=== PATIENT | male | born 1970 | race Caucasian/White ===

== ENCOUNTER → 2017-01-10 19:23 | Outpatient (CLI) | payer BC | END | disposition home or self-care (01) | LOC: D.SLEEP 19:23 | DX: G47.33 Obstructive sleep apnea (adult) (pediatric) (principal) ==

== ENCOUNTER 2017-05-24 05:30 | Day surgery (SDC) | payer BC ==
[~2017-05-24] VITALS: Ht 185.4 cm; Wt 97.1 kg
[~2017-05-24 05:30] MED LIST: AMINO ACIDS PO; CAYENNE PEPPER PO; CHANTIX 1 MG TAB1 MG PO; CHROMIUM PICO200 MC1 PO; CINNAMON500 MG PO; GLUCOPHAGE500 MG PO; OMEGA 3 FISH OI1 CAP PO; VITAMIN B-121000 MCG PO; [UNRECOGNIZED DRUG - OTHER] PO
[2017-05-24 08:42] VITALS: BP 122/80; Ht 185.4 cm; Wt 97.1 kg
== END 2017-05-24 14:45 | disposition home or self-care (01) ==
LOC: D.OPS 05:30 → D.PAN 09:30 → D.OPS 11:15 → D.PAN 11:15 → D.OPS 14:45
DX: Z30.2 Encounter for sterilization (principal); F17.200 Nicotine dependence, unspecified, uncomplicated; E11.9 Type 2 diabetes mellitus without complications; G47.30 Sleep apnea, unspecified; Z01.812 Encounter for preprocedural laboratory examination

== ENCOUNTER → 2017-06-26 06:19 | Outpatient (CLI) | payer BC ==
[2017-05-24 08:42] VITALS: BMI 28.2
== END | disposition home or self-care (01) ==
LOC: D.LAB 06:19
DX: N46.9 Male infertility, unspecified (principal)

== ENCOUNTER 2018-03-25 09:10 | Day surgery (SDC) | payer BC ==
[~2018-03-25] VITALS: Ht 185.4 cm; Wt 100.7 kg
--- NOTE | ~2018-03-25 | HP ---
PATIENT: HALLE WEEKS MEDICAL RECORD: [id number] ACCOUNT: [id number] LOCATION:[facility] : 72 ADMISSION DATE: 03/25/18 HISTORY AND PHYSICAL EXAMINATION PREOPERATIVE HISTORY AND PHYSICAL HISTORY OF PRESENT ILLNESS: Halle is 47 who is having chronic problems with nasal obstruction and sleep apnea. He is admitted for septoplasty and bilateral inferior turbinate reduction. PAST MEDICAL HISTORY: Includes diabetes, hypertension and sleep apnea. PAST SURGICAL HISTORY: Includes uvulopharyngopalatoplasty and tonsillectomy. MEDICATIONS: Current medications include metformin, Wellbutrin, testosterone, lisinopril, Trulicity. ALLERGIES: No known drug allergies. PHYSICAL EXAMINATION: GENERAL: Healthy appearing, developmentally normal. FACE: Normal, symmetric, no lesions. EYES: Sclerae and conjunctivae are normal. EARS: Canals and TMs are normal. NOSE: Right septal deviation, large inferior turbinates, no masses or polyps. ORAL CAVITY AND OROPHARYNX: Status post tonsillectomy and UP3. NECK: No masses, no adenopathy. CHEST: Clear. CARDIOVASCULAR: Regular rate and rhythm, no murmur. EXTREMITIES: Normal. IMPRESSION: Sleep apnea, nasal obstruction, refractory to medical management. PLAN: Septoplasty and bilateral inferior turbinate reduction. TRANSINT:[id number] Voice Confirmation ID: [id number] DOCUMENT ID: [id number] BALTA MCCULLOUGH MD at 1711 CC: [id number] DICTATION DATE: 03/22/18 1304 DIRECTOR OF CLINICAL SERVICES: 03/22/18 1351 [facility] 03/25/18 [place] [id number] [place] [id number]
--- NOTE | ~2018-03-25 | OP ---
PATIENT NAME: HALLE WEEKS MEDICAL RECORD: [id number] :72 LOCATION:[facility] ADMISSION DATE: SURGEON: BALTA SANON MD DATE OF OPERATION: 03/25/2018 PREOPERATIVE DIAGNOSES: Nasal obstruction, septal deviation, and turbinate hypertrophy. POSTOPERATIVE DIAGNOSES: Nasal obstruction, septal deviation, and turbinate hypertrophy. PROCEDURES: Septoplasty and bilateral inferior turbinate reduction. SURGEON: Balta Sanon MD ANESTHESIA: General orotracheal. BLOOD LOSS: 2 cc. SPECIMENS: Portion of the turbinates. COMPLICATIONS: None. DISPOSITION: Recovery, stable. PACKING: Dean splints bilaterally. PROCEDURE NOTE: He was brought to the operating room, placed in the supine position, sedated and intubated by anesthesia. Eyes were taped. Head drape was applied. He was positioned, prepped, and draped for nasal surgery. He had been decongested with Afrin preoperatively. Using headlight and nasal speculum, both sides of the nose were injected including the septum, floor of the nose, and inferior turbinates with a total of less than 2 cc of 1% lidocaine with 1:100,000 epinephrine. Two Afrin pledgets were replaced on each side of the nose. After waiting for decongestion, all the Afrin pledgets were removed. A left-sided Jun incision was made and ipsilateral mucoperichondrial flap was elevated. He had previous surgery, so septum really was not attached to the maxillary spine. Some relaxing incisions were made to allow the cartilaginous septum to fall back to the midline. A bony spur was removed from left maxillary spine posteriorly. A small bony spur was removed and the bony septum was fractured to allow the septum to fall back to the midline. Some redundant mucosa was flattened out over the spur, which created midline flat septum. Both inferior turbinates were medialized. The inferior portion was taken down just a little bit with Gruenwald forceps. Suction cautery was used to stop any bleeding and both outfractured with a Ferguson elevator. Nasopharynx was suctioned. [place] incision was closed with interrupted 4-0 chromic. Dean splints were placed bilaterally and sutured to the anterior membranous septum with 2-0 Prolene on a Feroz needle. He was awakened, extubated, and transported to recovery in good condition. No complications. TRANSINT:[id number] Voice Confirmation ID: [id number] DOCUMENT ID: [id number] OPERATIVE REPORT [id number] HALLE WEEKS ERIC MD at 1711 CC: [id number] DICTATION DATE: 03/25/18 142 DOUBLE NEEDLE OPERATOR LOCKSTITCH: 03/25/18 1442 [facility] 03/25/18 [place] [id number] [place] [id number]
[2018-03-25 05:45] LABS: HEMATOCRIT 40.2 % (42.0-54.0); HEMOGLOBIN 13.7 g/dL (13.5-17.5); MCH 31.4 pg (26.0-34.0); MCHC 34.1 g/dL (31.0-37.0); MEAN PLATELET VOLUME 9.9 fL (7.4-10.4); RBC 4.37 10x6/uL (4.20-6.10); RDW 12.4 % (11.5-14.5); WBC 7.6 10x3/uL (4.8-10.8)
[2018-03-25 05:54] LABS: CALC OSMOLALITY 280 mosm/kg (275-300); CALCIUM 8.9 mg/dL (8.5-10.1); CARBON DIOXIDE 27.6 mmol/L (21.0-32.0); CHLORIDE - SERUM 107 mmol/L (98-107); CREATININE - SERUM 0.9 mg/dL (0.6-1.3); GLUCOSE 133 mg/dL (74-106); POTASSIUM - SERUM 3.6 mmol/L (3.5-5.1); SODIUM 140 mmol/L (136-145); UREA NITROGEN 12 mg/dL (7-18); eGFR NON AFRICAN AMERICAN > 90 mL/min (90-120)
[~2018-03-25 09:10] MED LIST changes: +LISINOPRIL10 MG PO; +WELLBUTRIN SR150 MG PO
[2018-03-25] MEDS ORDERED: TRULICITY0.75 MG/0. SC (09:42)
[2018-03-25 09:50] VITALS: Ht 185.4 cm; Wt 100.7 kg
== END 2018-03-25 16:30 | disposition home or self-care (01) ==
LOC: D.OPS 09:10
PROVIDERS: Anesthesiology
DX: J34.2 Deviated nasal septum (principal); J34.89 Other specified disorders of nose and nasal sinuses; J34.3 Hypertrophy of nasal turbinates

== ENCOUNTER → 2018-05-17 09:36 | Outpatient (CLI) | payer BC ==
[2018-03-25 09:50] VITALS: BMI 29.3
[~2018-05-17 09:36] MED LIST changes: +TRULICITY0.75 MG/0. SC
== END | disposition home or self-care (01) ==
LOC: D.MRI 09:36
DX: M54.2 Cervicalgia (principal)

== ENCOUNTER → 2019-01-15 09:11 | Outpatient (CLI) | payer BC ==
[2018-03-25 09:50] VITALS: BMI 29.3
== END | disposition home or self-care (01) ==
LOC: D.NM 09:11
PROVIDERS: ATTEND Family Medicine
DX: R94.6 Abnormal results of thyroid function studies (principal)

== ENCOUNTER 2019-02-16 03:19 | Emergency (ER) | payer BC ==
[~2019-02-16] VITALS: Ht 185.4 cm; Wt 104.5 kg
[2019-02-16 03:24] VITALS: Ht 185.4 cm; Wt 104.5 kg
[2019-02-16] MEDS ORDERED: NORVASC5 MG (03:26)
[2019-02-16] MEDS ORDERED: LEVEMIR IN100 UNITS/ (03:26)
[2019-02-16] MEDS ORDERED: ZYPREXA2.5 MG (03:26)
[2019-02-16 03:58] LABS: BASOPHILS 0.1 % (0-2); EOSINOPHILS 0.1 % (0-7); HEMATOCRIT 41.5 % (42.0-54.0); HEMOGLOBIN 14.6 g/dL (13.5-17.5); IMMATURE GRANULOCYTES 0.3 % (0-5); LYMPHOCYTES 7.1 % (15-50); MCH 31.4 pg (26.0-34.0); MCHC 35.2 g/dL (31.0-37.0); MCV 89.2 fL (80.0-100.0); MONOCYTES 3.6 % (2-11); NEUTROPHILS 88.8 % (40-80); PLATELET COUNT 183 10x3/uL (130-400); RBC 4.65 10x6/uL (4.20-6.10); RDW 12.4 % (11.5-14.5); WBC 14.7 10x3/uL (4.8-10.8)
[2019-02-16 04:09] LABS: APPEARANCE CLEAR (CLEAR); COLOR YELLOW (YELLOW); GLUCOSE 1000 mg/dL (NEGATIVE); NITRITE NEGATIVE (NEGATIVE); PROTEIN NEGATIVE (NEGATIVE); SPECIFIC GRAVITY 1.015 (1.005-1.020)
[2019-02-16 04:10] LABS: ALBUMIN 3.8 g/dL (3.4-5.0); ALKALINE PHOSPHATASE 72 U/L (46-116); ALT (SGPT) 52 U/L (10-68); AMYLASE - SERUM 20 U/L (25-115); BILIRUBIN - TOTAL 0.53 mg/dL (0.2-1.3); CALCIUM 9.1 mg/dL (8.5-10.1); CARBON DIOXIDE 24.2 mmol/L (21.0-32.0); CHLORIDE - SERUM 101 mmol/L (98-107); CREATININE - SERUM 0.9 mg/dL (0.6-1.3); LIPASE 129 U/L (73-393); POTASSIUM - SERUM 4.4 mmol/L (3.5-5.1); PROTEIN - SERUM 7.4 g/dL (6.4-8.2); SODIUM 136 mmol/L (136-145); UREA NITROGEN 14 mg/dL (7-18); eGFR NON AFRICAN AMERICAN > 90 mL/min (90-120)
[2019-02-16 04:10] LABS: BILIRUBIN NEGATIVE (NEGATIVE); KETONE MODERATE mg/dL (NEGATIVE); UROBILINOGEN NORMAL (NORMAL)
[2019-02-16 04:11] LABS: CALC OSMOLALITY 284 mosm/kg (275-300); GLUCOSE 307 mg/dL (74-106); TROPONIN-I < 0.017 ng/mL (0.000-0.060)
[2019-02-16] MEDS ORDERED: PERCOCET 5-3251 TAB PO (05:30)
[2019-02-16 05:50] VITALS: BP 132/69
== END 2019-02-16 05:50 | disposition home or self-care (01) ==
LOC: D.ER 03:19
PROVIDERS: Emergency Medicine
DX: K80.20 Calculus of gallbladder without cholecystitis without obstruction (principal); K80.50 Calculus of bile duct without cholangitis or cholecystitis without obstruction; E11.65 Type 2 diabetes mellitus with hyperglycemia; Z79.4 Long term (current) use of insulin